=== PATIENT | male | born 1980 | race Caucasian/White ===

== ENCOUNTER 2019-11-06 22:26 | Emergency (ER) | payer OTHER ==
[~2019-11-06] VITALS: Ht 175.3 cm; Wt 81.6 kg
[2019-11-06 22:33] VITALS: Ht 175.3 cm; Wt 81.6 kg
[2019-11-06 23:51] VITALS: BP 122/82
== END 2019-11-06 23:51 | disposition home or self-care (01) ==
LOC: ED 22:26
DX: G56.32 Lesion of radial nerve, left upper limb (principal); J45.909 Unspecified asthma, uncomplicated